=== PATIENT | female | born 1995 | race Hispanic/Latino ===

== ENCOUNTER → 2019-01-29 16:16 | Outpatient (CLI) | payer OTHER, MEDICAID, SELFPAY ==
--- NOTE | 2019-01-29 | DI.US.S_ITS ---
PROCEDURE: US PELVIC COMPLETE INDICATIONS: ABN UT VAGINAL BLEEDING, UNSPECIFIED TECHNIQUE: Real-time scanning was performed of the pelvic organs, with image documentation. Additional endovaginal scanning was necessary due to incomplete visualization of the adnexal and endometrial structures by transabdominal scanning. COMPARISON: None. FINDINGS: Transabdominal scanning: Limited scanning through the kidneys shows no hydronephrosis. No pathologic free abdominal or pelvic fluid. Endovaginal scanning: Uterus: Uterus is normal in size at 2.7 x 3.6 x 6.8 cm, anteverted. The endometrium measures 3.9 mm in combined thickness. Ovaries: Right ovary measures 1.7 x 2.0 x 4.0 cm and the left measures 2.1 x 2.5 x 3.8 cm. There is a greater number of small peripheral follicles in each ovary, potentially a manifestation of polycystic ovarian syndrome. IMPRESSION: Normal appearing uterus and endometrial lining. Incidental note is made of an increased number of small follicular cysts along the periphery of each ovary, potentially a manifestation of mild polycystic ovarian syndrome. Overall, a definite source of reported vaginal bleeding is not seen. Dictated by: Alvin Sung M.D. on 01/30/2019 at 8:32 Approved by: Alvin Sung M.D. on 01/30/2019 at 8:35
== END ==
PROVIDERS: Family Provider Student in an Organized Health Care Education/Training Program; PCP Student in an Organized Health Care Education/Training Program; Visit Provider Nurse Practitioner Family
DX: N93.9 Abnormal uterine and vaginal bleeding, unspecified (principal); N83.02 Follicular cyst of left ovary; N83.01 Follicular cyst of right ovary
CPT/HCPCS: 76830; 76856

== ENCOUNTER → 2019-08-27 13:17 | Outpatient (CLI) | payer OTHER, MEDICAID, SELFPAY ==
--- NOTE | 2019-08-27 | DI.MRI.S_ITS ---
PROCEDURE: MR BRAIN (PITUITARY) WWO CON INDICATIONS: ELEVATED PROLACTIN TECHNIQUE: Noncontrast sagittal and axial FLAIR, axial gradient echo, axial diffusion and ADC through the brain. Thin-slice sagittal and coronal T1 spin echo, coronal T2 fast spin echo through the pituitary. After the administration contrast, optional dynamic coronal T1 spin echo, thin-slice coronal and sagittal T1 spin echo images through the pituitary fossa; axial T1 spin echo with fat saturation through the brain. COMPARISON: None. FINDINGS: Image quality: Limited by patient motion. Pituitary Gland: Pituitary gland has normal size and contour. Pituitary gland demonstrates normal postcontrast enhancement. No areas of delayed postcontrast enhancement identified that would be consistent with pituitary adenoma. Pituitary infundibulum is midline. Pituitary infundibulum is normal thickness, contour and postcontrast enhancement. Cavernous sinus demonstrates normal postcontrast enhancement. No suprasellar mass is identified to the optic chiasm is normal CSF Spaces: Ventricles are normal in size and shape. Basal cisterns are patent. No extra-axial fluid collections. Brain: No intracranial bleeds or mass effects. No abnormal intracranial enhancement. Sauceda-white matter interface is intact. Diffusion weighted images demonstrate no acute ischemic insults. Brainstem is normal. Normal intravascular flow voids are present. Skull and face: Calvarial marrow is normal in signal. Orbits appear normal. Sinuses: Sinuses and mastoids are clear. IMPRESSION: 1. No evidence of pituitary adenoma. 2. No intracranial disease process. Dictated by: Kirti Trejo MD, PhD on 08/27/2019 at 15:08 Approved by: Kirti Trejo MD, PhD on 08/27/2019 at 15:12
== END ==
PROVIDERS: Family Provider Student in an Organized Health Care Education/Training Program; PCP Student in an Organized Health Care Education/Training Program; Referring Provider Student in an Organized Health Care Education/Training Program; Visit Provider Student in an Organized Health Care Education/Training Program
DX: R79.89 Other specified abnormal findings of blood chemistry (principal); N93.8 Other specified abnormal uterine and vaginal bleeding
CPT/HCPCS: 70553

== ENCOUNTER → 2019-09-09 15:15 | Outpatient (CLI) | payer OTHER, MEDICAID, SELFPAY ==
[2019-09-09 16:32] LABS: Add Manual Diff / Slide Review NO; Basophils Absolute Auto 0 /uL (0-100); Basophils Percent Auto 0.4 % (0-2); Eosinophils Absolute Auto 200 /uL (0-450); Eosinophils Percent Auto 1.8 % (2-4); Hematocrit 39.8 % (36-46); Hemoglobin 13.5 g/dL (12.0-16.0); Lymphocytes Absolute Auto 2900 /uL (1100-4500); Mean Corpuscular HGB Conc 33.9 % (30-36); Mean Corpuscular Hemoglobin 30.9 PG (26-34); Mean Corpuscular Volume 91.3 fL (80-100); Monocytes Absolute Auto 800 /uL (0-900); Monocytes Percent Auto 7.6 % (3-14); Neutrophils Absolute Auto 6500 /uL (1500-7000); Neutrophils Percent Auto 62.2 % (50-75); Platelet Count 282 X10^3/uL (150-400); Red Blood Cell Count 4.36 X10^6/uL (4.0-5.2); Red Cell Distribution Width 13.6 % (11.6-14.8); White Blood Cell Count 10.4 X10^3/uL (4.5-11.0)
== END ==
PROVIDERS: Family Provider Student in an Organized Health Care Education/Training Program; PCP Student in an Organized Health Care Education/Training Program; Referring Provider Student in an Organized Health Care Education/Training Program; Visit Provider Student in an Organized Health Care Education/Training Program
DX: N93.8 Other specified abnormal uterine and vaginal bleeding (principal)
CPT/HCPCS: 36415; 85025

== ENCOUNTER → 2019-09-11 14:02 | Outpatient (CLI) | payer OTHER, MEDICAID, SELFPAY ==
--- NOTE | 2019-09-11 | DI.US.S_ITS ---
PROCEDURE: US PELVIC COMPLETE INDICATIONS: ABN UTERINE AND VAGINAL BLEEDING TECHNIQUE: Real-time scanning was performed of the pelvic organs, with image documentation. Additional endovaginal scanning was necessary due to incomplete visualization of the adnexal and endometrial structures by transabdominal scanning. COMPARISON: [facility], , US PELVIC COMPLETE, 01/29/2019, 17:00. FINDINGS: Transabdominal scanning: Limited scanning through the kidneys shows no hydronephrosis. No pathologic free abdominal or pelvic fluid. Endovaginal scanning: Uterus: Uterus is normal in size at 7.6 x 2.5 x 3.7 cm. The endometrium measures 9-10 mm in combined thickness. Within the endometrial cavity, there is heterogeneous, punctate echogenic presumed debris or blood products. No internal vascularity Ovaries: Right ovary measures 4.1 x 2.4 x 2.6 cm. The left ovary measures 3.9 x 2.5 x 2.5. Ovaries are unremarkable IMPRESSION: Presumed blood products or debris within the endometrial cavity although this could be confirmed with short interval followup ultrasound to document resolution Dictated by: Des Ayala M.D. on 09/11/2019 at 16:50 Approved by: Des Ayala M.D. on 09/11/2019 at 16:52
== END ==
PROVIDERS: Family Provider Student in an Organized Health Care Education/Training Program; PCP Student in an Organized Health Care Education/Training Program; Referring Provider Student in an Organized Health Care Education/Training Program; Visit Provider Student in an Organized Health Care Education/Training Program
DX: N93.8 Other specified abnormal uterine and vaginal bleeding (principal)
CPT/HCPCS: 76830; 76856

== ENCOUNTER → 2020-05-17 13:55 | Outpatient (CLI) | payer OTHER, MEDICAID, SELFPAY ==
--- NOTE | 2020-05-17 13:59 | DIET.PN ---
Dietary Progress Note Assessment: 25y F referred to nutrition by her PCP for help with a carbohydrate consistent diet to manage PCOS. Pt tried going off control pills but was having constant heavy periods, soaking through super tampons every 45min. Pt started a new pill a month ago and cycles are starting to regulate. Pt was tested for anemia several months ago with WNL labs. Pt reports starting to change her diet over the past 1.5mo spurred by dating a vegan which made her take a look at her standard [place] diet high in processed foods. Pt has been using [employer] to track macros but was unsure what she should aim for. Pt has also been researching and experimenting with anti-inflammatory diet. Pt is learning to cook and each week focuses on a different culture or meal to expand her repertoire. Pt lives with alexi who is younger and still eats poorly so she will eat that food occasionally. Pt is interested in developing healthy habits for her long-term health. Labs: A1c 5.2 Nutrition Diagnosis: excessive carbohydrate intake r/t food and nutrition knowledge deficit aeb pt is insulin resistant secondary to PCOS, pt unaware of what carbohydrates are and how many to eat, pt followed SAD diet until 1.5mo ago high in ultraprocessed foods. Interventions: 1. Discussed etiology of insulin resistance in context of PCOS. Educated pt on A1c test. 2. Using handouts and food models, educated pt on carbohydrate consistent diet with goal of 30-45g per meal and 15-30g per snack. 3. Using CCD, introduced pt to plate balance with 1/4 CHO, 1/4 PRO, 1/2 F/non-starchy veggies. Encouraged pt to look at her completed meals and snacks to assess their balance and problem solve them for the next time she prepares them. Using food models, problem solved several high carb meals (rice, pasta, snacks) using plate balance. 4. Educated pt on importance of regular physical activity to manage insulin resistance with goal of 150min moderate intensity per week. Encouraged pt to start tracking her steps using phone hemant to attain 10,000 steps per day. Diet Order: CCD EER: 30-45g CHO per meal Monitoring/Evaluations: pt will call if requesting f/u appt
== END ==
PROVIDERS: Family Provider Student in an Organized Health Care Education/Training Program; PCP Student in an Organized Health Care Education/Training Program; Referring Provider Student in an Organized Health Care Education/Training Program; Visit Provider Student in an Organized Health Care Education/Training Program
DX: E28.2 Polycystic ovarian syndrome (principal); E88.81 Metabolic syndrome and other insulin resistance; Z71.3 Dietary counseling and surveillance
CPT/HCPCS: 97802

== ENCOUNTER → 2021-02-09 07:27 | Outpatient (CLI) | payer OTHER, MEDICAID, SELFPAY ==
[2021-02-09 08:28] LABS: COVID19 -Nasal RAPID Negative (Negative)
== END ==
PROVIDERS: Family Provider Student in an Organized Health Care Education/Training Program; PCP Student in an Organized Health Care Education/Training Program; Visit Provider Nurse Practitioner Family
DX: Z20.822 Contact with and (suspected) exposure to COVID-19 (principal); J02.9 Acute pharyngitis, unspecified
CPT/HCPCS: 87070; 87635; 87880

== ENCOUNTER → 2021-03-03 09:11 | Outpatient (CLI) | payer OTHER, MEDICAID, SELFPAY ==
--- NOTE | 2021-03-03 | DI.US.S_ITS ---
PROCEDURE: US PELVIC COMPLETE INDICATIONS: DYSMENORRHEA TECHNIQUE: Real-time scanning was performed of the pelvic organs, with image documentation. Additional endovaginal scanning was necessary due to incomplete visualization of the adnexal and endometrial structures by transabdominal scanning. COMPARISON: [facility], , US PELVIC COMPLETE, 09/11/2019, 14:59. FINDINGS: Uterus: Uterus is normal in size at 7.4 x 4.1 x 3.1 cm. The endometrium measures 4.3 mm in combined thickness. Hypoechoic lesions are seen in the cervix, compatible with nabothian cysts. Ovaries: The right ovary measures 3.8 x 2.3 x 2 cm. Greater than 21 follicles. The left ovary measures 3.6 x 2.6 x 2.1 cm. Greater than 27 follicles. Other: No pathologic free abdominal or pelvic fluid. IMPRESSION: No significant abnormality. Dictated by: Randy Calderon M.D. on 03/03/2021 at 10:06 Approved by: Randy Calderon M.D. on 03/03/2021 at 10:15
== END ==
PROVIDERS: Family Provider Student in an Organized Health Care Education/Training Program; PCP Student in an Organized Health Care Education/Training Program; Referring Provider Student in an Organized Health Care Education/Training Program; Visit Provider Student in an Organized Health Care Education/Training Program
DX: N94.6 Dysmenorrhea, unspecified (principal)
CPT/HCPCS: 76830; 76856